=== PATIENT | male | born 1950 | race Caucasian/White ===

== ENCOUNTER 2019-08-06 09:19 | Emergency (ER) | payer BC ==
[2019-08-06] MEDS ORDERED: Ondansetron INJ* 2 MG/ML VIAL IV ONE (09:23)
[2019-08-06] MEDS ORDERED: Morphine 4 MG/ML VIAL (1 ml) 4 MG/ML VIAL IV ONE ×2 (09:23→10:18)
[2019-08-06 09:59] LABS: ABS Eosinophils 0.2 10^3/ul (0-0.6); ABS Monocytes 0.5 10^3/ul (0-0.8); ABS Neutrophils 3.3 10^3/ul (1.5-7.7); Eosinophil % 3.2 %; Hematocrit 45 % (42-52); Hemoglobin 15.6 g/dL (14.0-18.0); Lymphocyte % 19.5 %; Mean Corpuscular HGB Conc 35 g/dL (31-36); Mean Corpuscular Hemoglobin 32 pg (27-31); Mean Corpuscular Volume 93 fL (80-94); Mean Platelet Volume 8.8 fL (7.4-10.4); Nucleated Red Blood Cells % 0.1; Platelet Count 173 10^3/uL (150-450); Red Blood Count 4.82 10^6 /uL (4.18-5.48); Red Cell Distribution Width 13 % (10-15)
--- OUTSIDE RECORDS SUMMARY | 2019-08-06 10:07 | XMS REPORT | Continuity of Care Document ---
:1950 External Reference #:[id number] Author Name Nilay Sharma M.D. (transmitted by agent of provider Maria Isabel De Santiago) Address [address], [place] [address] Care Team Providers Name Role Phone Amrit Nieto MD - Family Care Team Information Compound Filler [phone] Gely Quiroz M.D. 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 Galvan M.D.,FACP Onset: 2017 Dysfunction of eustachian tube Rocky Galvan M.D.,FACP Onset: 06/11/2018 Note: allergies Social History Type Date Description Comments Sex Unknown Tobacco Use Start: 11/04/69 End: Former Cigarette Smoker /2 11/04/70 Pack Daily ETOH Use 06/11/2018 Currently consumes alcohol ETOH Use Drinks 3 Alcoholic Beverages Per Week Recreational Drug Use Denies Drug Use Tobacco Use Start: Unknown Patient has never smoked Smoking Status Reviewed: 06/12/19 Patient has never smoked Exercise Type/Frequency Exercises regularly Allergies, Adverse Reactions, Alerts Active Allergies Reaction Severity Comments Date Neosporin 07/20/2016 Medications Active Medications SIG Qnty Indications Ordering Date Provider Shingrix 0.5 milliliters 2units Gely Antoine MD 10/14/2018 50mcg/0.5ML intramuscular now Suspension Rec and 2-3 months later repeat Valacyclovir HCL take two tablets by 8tasara Lucero 06/11/2018 1gm mouth every 12 hours Alex Sharma Tablets as needed maximum daily dose = four tablets Saw [place] 1 by mouth twice a 60caps Rocky Crow 06/11/2018 450mg day Alex Galvan,FACP Capsules Fluticasone 2 sprays in each 16gm Gely Antoine MD Propionate nostril bid 50mcg/Act Suspension Multivitamin Men once daily Unknown Tablets Glucosamine 1500 1 by mouth every day Unknown Complex 1500Com Capsules Medications Administered in Office Medication SIG Qnty Indications Ordering Provider Date Td(Adult),Unspecified Unknown 06/02/2007 Injection Immunizations CPT Code Status Date Vaccine Reaction Lot # [id number] Given 06/12/2019 Pneumonia Vaccine [id number] 29291 Given 10/14/2018 Influenza Virus Vaccine, [id number] Quadrivalent, Split, Preservative Free 25595 Given 12/31/2017 Pneumococcal Conjugate done at [facility] Vaccine 13 Valent For med Intramuscular Use 65914 Given 09/08/2017 Influenza Virus Vaccine, done at [facility] Quadrivalent, Split, med Preservative Free 50356 Given 11/06/2016 Influenza Virus Vaccine, done at [facility] Quadrivalent, Split, med Preservative Free 50019 Given 10/08/2015 Influenza Virus Vaccine, done at [facility] Quadrivalent, Split, med Preservative Free 34336 Given 12/03/2014 Influenza Virus Vaccine, done at [facility] Quadrivalent, Split, med Preservative Free 50874 Given 11/30/2013 Influenza Virus Vaccine, done at [facility] Quadrivalent, Split, med Preservative Free 63616 Given 09/11/2012 Influenza Virus Vaccine, done at [facility] Quadrivalent, Split, med Preservative Free 62299 Given 08/02/2011 Zoster (Zostavax) done at [facility] med 20913 Given 08/02/2011 Influenza Virus Vaccine, done at [facility] Quadrivalent, Split, med Preservative Free 96231 Given 07/27/2010 Influenza Virus Vaccine, done at [facility] Quadrivalent, Split, med Preservative Free 84007 Given 07/27/2010 Hepatitis A Vaccine Adult done at [facility] [place] 19965 Given 12/22/2009 Hepatitis A Vaccine Adult done at [facility] Dosage med Vital Signs Date Vital Result Comment 06/12/2019 9:03am Height 74 inches 6'2" Weight 204.00 lb Heart Rate 74 /min BP Systolic 160 mmHg BP Diastolic 96 mmHg BP Systolic Sitting 154 mmHg 150/82 BP Diastolic Sitting 79 mmHg 150/82 O2 % BldC Oximetry 96 % BMI (Body Mass Index) 26.2 kg/m2 11/11/2018 8:05am Height 74 inches 6'2" Weight 203.38 lb Heart Rate 65 /min BP Systolic Sitting 132 mmHg BP Diastolic Sitting 72 mmHg Body Temperature 96.0 F O2 % BldC Oximetry 98 % BMI (Body Mass Index) 26.1 kg/m2 Results Description No Information Available Procedures Date Code Description Status 07/21/2012 05094621 Colonoscopy Completed 11/04/2009 [id number] Colonoscopy Completed Medical Devices Description No Information Available Encounters Description No Information Available Assessments Date Code Description Provider 06/12/2019 R39.198 Other difficulties with micturition Nilay Sharma M.D. 06/12/2019 Z23 Encounter for immunization Nilay Sharma M.D. Plan of Treatment 06/12/2019 - Nilay Sharma M.D.R39.198 Other difficulties with micturitionComments:Chronic decreased urine flow, dribbling sx, so far with no clear cause. Local urology eval to date unhelpful and pt scheduled for a second urology opinion in [place] later this month. No dysuria orabd pain sx.Follow up:prn after urology evalZ23 Encounter for immunizationComments: General health good, although BP up a bit today. Pneumovax given and the new shingles vaccine discussed. Pt up to date with other vaccines, colon exam. Will check [facility] system for recent labs Functional Status Description No Information Available Mental Status Description No Information Available Referrals Refer to Dr Reason for Referral Status Appt Date Ariel Silva M.D. Sent [address] [place] [address] [phone]
--- OUTSIDE RECORDS SUMMARY | 2019-08-06 10:07 | XMS REPORT | Continuity of Care Document ---
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 Payers Date Identification Numbers Payment Provider Subscriber Effective: 2017 Policy Number: [id number] [employer] Augustina Lorenzana PayID: [id number] [address] [address] [place] [address] Policy Number: [id number] Medicare Saleem Lorenzana PayID: [id number] [address] [place] [address] Problems Active Problems Provider Date Bicipital tenosynovitis Miles Reed MD Onset: 08/28/2016 Benign prostatic hypertrophy without Rocky Galvan M.D.,FACP Onset: 06/2018 outflow obstruction Recurrent herpes simplex labialis Rocky Galvan M.D.,FACP Onset: 2017 Dysfunction of eustachian tube Rocky Galvan M.D.,FACP Onset: 06/11/2018 Note: allergies Resolved Problems Sprain of shoulder and upper arm Miles Reed MD Onset: 08/28/2016 Resolved: 06/11/2018 Family History Date Family Member(s) Observation Comments General Diabetes General Hypertension General Cancer Father due to Lung Cancer () Mother Heart Disease : (age 84 Years) Mother due to Natural Causes Siblings 1 First Brother Arthritis, Osteo Social History Type Date Description Comments Sex Unknown Marital Status Lives With Occupation Currently Working Tobacco Use Start: 11/04/69 End: Former Cigarette Smoker 1/2 11/04/70 Pack Daily ETOH Use 06/11/2018 Currently [...] repeat Valacyclovir HCL take two tablets by 8tabs Nilay Lucero 06/11/2018 1gm mouth every 12 hours Alex Sharma Tablets as needed maximum daily dose = four tablets Saw [place] 1 by mouth twice a 60caps Rocky Crow 06/11/2018 450mg day Alex Galvan,FACP Capsules Fluticasone 2 sprays in each 16gm Gely Antoine MD Propionate nostril bid 50mcg/Act Suspension Multivitamin Men once daily Unknown Tablets Glucosamine 1500 1 by mouth every day Unknown Complex 1500Com Capsules History Medications Amoxicillin/Clavulanate 1 twice a 20tabs J01.90 Gely Antoine 10/14/2018 - Potassium day for 10 11/11/2018 875-125mg Tablets days Tamsulosin HCL one po daily 30caps N40.0 Gely Antoine 10/14/2018 - 0.4mg Capsules at night 11/11/2018 Medications Administered in Office Medication SIG Qnty Indications Ordering Provider Date Td(Adult),Unspecified Unknown 06/02/2007 Injection Immunizations CPT Code Status Date Vaccine Reaction Lot # [id number] Given 06/12/2019 Pneumonia Vaccine [id number] 35708 Given 10/14/2018 Influenza Virus Vaccine, [id number] Quadrivalent, Split, Preservative Free 87424 Given 12/31/2017 Pneumococcal Conjugate done at [facility] Vaccine 13 Valent For med Intramuscular Use 54969 Given 09/08/2017 Influenza Virus Vaccine, done at [facility] Quadrivalent, Split, med Preservative Free 70199 Given 11/06/2016 Influenza Virus Vaccine, done at [facility] Quadrivalent, Split, med Preservative Free 86125 Given 10/08/2015 Influenza Virus Vaccine, done at [facility] Quadrivalent, Split, med Preservative Free 86275 Given 12/03/2014 Influenza Virus Vaccine, done at [facility] Quadrivalent, Split, med Preservative Free 92783 Given 11/30/2013 Influenza Virus Vaccine, done at [facility] Quadrivalent, Split, med Preservative Free 36651 Given 09/11/2012 Influenza Virus Vaccine, done at [facility] Quadrivalent, Split, med Preservative Free 05909 Given 08/02/2011 Zoster (Zostavax) done at [facility] med 19448 Given 08/02/2011 Influenza Virus Vaccine, done at [facility] Quadrivalent, Split, med Preservative Free 10121 Given 07/27/2010 Influenza Virus Vaccine, done at [facility] Quadrivalent, Split, med Preservative Free 34755 Given 07/27/2010 Hepatitis A Vaccine Adult done at [facility] [place] 10953 Given 12/22/2009 Hepatitis A Vaccine Adult done at [facility] Dosage med Vital Signs Date Vital Result [...] % BMI (Body Mass Index) 26.1 kg/m2 10/14/2018 9:39am Height 74 inches 6'2" Weight 203.38 lb Heart Rate 68 /min BP Systolic 130 mmHg BP Diastolic 82 mmHg Body Temperature 96.4 F O2 % BldC Oximetry 97 % BMI (Body Mass Index) 26.1 kg/m2 06/11/2018 4:14pm Height 74 inches 6'2" Weight 199.38 lb Heart Rate 65 /min BP Systolic Sitting 136 mmHg BP Diastolic Sitting 78 mmHg O2 % BldC Oximetry 97 % BMI (Body Mass Index) 25.6 kg/m2 08/28/2016 11:22am Height 74 inches 6'2" Weight 191.00 lb Heart Rate 60 /min Respiratory Rate 16 /min Pain Level 7 BMI (Body Mass Index) 24.5 kg/m2 07/20/2016 8:54am Height 74 inches 6'2" Weight 191.00 lb Pain Level 7 BMI (Body Mass Index) 24.5 kg/m2 Results Test Date Facility Test Result H/L Range Note PSA Free And Total 11/14/2018 [facility] PSA Total 3.0 ng/mL <=4.5 [address] [place] [address] [phone] PSA Free 0.8 ng/mL PSA Free/Total See Comment ratio 1 1 Ratio not calculated because clinical usefulness is not defined except in range of total PSA 4.0-10.0 ng/mL. ADDITIONAL INFORMATION The testing method is an electrochemiluminescence assay manufactured by [employer] and performed on the Modular or Estela system. Values obtained with different assay methods or kits may be different and cannot be used interchangeably. Test results cannot be interpreted as absolute evidence for the presence or absence of malignant disease. Test Performed by: [facility] [address] [place] [address] Procedures Date Code Description Status 07/21/2012 [id number] Colonoscopy Completed 11/04/2009 [id number] Colonoscopy Completed Encounters Type Date Location Provider Dx Diagnosis Office Visit 11/11/2018 Elo Antoine MD R39.198 Other difficulties 8:00a Medicine - Suite with micturition R Office Visit 10/14/2018 Elo Antoine MD J01.90 Acute sinusitis, 9:40a Medicine - Suite unspecified R Z23 Encounter for immunization N40.0 Benign prostatic hyperplasia without lower urinry tract symp Office Visit 06/11/2018 4:20p Elo Crow Z00.00 [facility] Alex Galvan,FACP general adult R medical exam w/o abnormal findings N40.0 Benign prostatic hyperplasia without lower urinry tract symp Office Visit 08/28/2016 11:15a Orthopedic Miles Reed, M75.21 [facility], right C.M.A. shoulder S46.011A Strain of musc/tend the rotator cuff of right shoulder, init Office Visit 07/20/2016 8:30a Orthopedic Miles Reed M75.21 [facility] MD matute, right C.M.A. shoulder S46.011A Strain of musc/tend the rotator cuff of right shoulder, init Plan of Treatment 06/12/2019 - Nilay Sahrma M.D.R39.198 Other difficulties with micturitionComments:Chronic decreased urine flow, dribbling sx, so far with no clear cause. Local urology eval to date unhelpful and pt scheduled for a second urology opinion in [place] later this month. No dysuria orabd pain sx.Follow up:prn after urology evalZ23 Encounter for immunizationComments: General health good, although BP up a bit today. Pneumovax given and the new shingles vaccine discussed. Pt up to date with other vaccines, colon exam. Will check [facility] system for recent labs
[2019-08-06 10:18] LABS: ALT 35 U/L (7-52); AST 30 U/L (13-39); Albumin 4.2 g/dL (3.2-5.2); Albumin/Globulin Ratio 1.6 (1-3); Alkaline Phosphatase 55 U/L (34-104); Anion Gap 5 mmol/L (2-11); BUN/Creatinine Ratio 19.5 (8-20); Blood Urea Nitrogen 23 mg/dL (6-24); C Reactive Protein < 1.00 mg/L (<8.01); CO2 Carbon Dioxide 26 mmol/L (22-32); Calcium 9.8 mg/dL (8.6-10.3); Chloride 107 mmol/L (101-111); EGFR African American 74.7 (>60); EGFR Non-African American 61.8 (>60); Globulin 2.7 g/dL (2-4); Glucose 132 mg/dL (70-100); Potassium 4.4 mmol/L (3.5-5.0); Sodium 138 mmol/L (135-145); Total Protein 6.9 g/dL (6.4-8.9)
--- NOTE | 2019-08-06 10:21 | ED ---
Back Pain - HPI Summary HPI Summary: Pt is a 68 y/o M presenting to the ED for a chief complaint of flank pain over the right kidney. The flank began 2 weeks ago and pt describes that the pain comes and goes. Pt took Tylenol at 07:30 on 08/06/19 for the pain. Pt has had difficulty urinating, dysuria, and has testicular pain. Pt denies any fever, chills, erythema of eyes, sore throat, CP, SOB, cough, abdominal pain, N/V, hematuria, edema, rash, or dizziness. Pt is currently being treated at [place] for his prostate and is on hormone therapy. Pt is concerned about his prostate. Pt has a PMHx of nephrolithiasis. Allergies noted. - History of Current Complaint Chief Complaint: EDFlankPain Stated Complaint: POSS KIDNEY STONE PAIN PER PT Time Seen by Provider: 08/06/19 09:21 Hx Obtained From: Patient Onset/Duration: Still Present Severity Initially: Moderate Severity Currently: Moderate Pain Intensity: 5 Pain Scale Used: 0-10 Numeric Aggravating Symptom(s): Nothing Alleviating Symptom(s): Nothing Associated Signs And Symptoms: Positive: Flank Pain - Right. Negative: Swelling , Fever, Abdominal Pain - Allergies/Home Medications Allergies/Adverse Reactions: Allergies Allergy/AdvReac Type Severity Reaction Status Date / Time bacitracin Allergy Hives Verified 08/06/19 10:13 neomycin Allergy Hives Verified 08/06/19 10:13 polymyxin B Allergy Hives Verified 08/06/19 10:13 Home Medications: Home Medications Bicalutamide (NF) [Casodex (NF)] 50 mg PO DAILY 08/06/19 [History Confirmed 01/20] Glucosamine CAP (NF) 1 cap PO DAILY 08/06/19 [History Confirmed 08/06/19] Multivitamins/Minerals TAB* [Theragran/minerals TAB*] 1 tab PO DAILY 08/06/19 [ History Confirmed 08/06/19] Tadalafil (Nf) [Cialis (NF)] 5 mg PO DAILY 08/06/19 [History Confirmed 08/06/19] PMH/Surg Hx/FS Hx/Imm Hx Previously Healthy: Yes Endocrine/Hematology History: Denies: Hx Diabetes Cardiovascular History: Denies: Hx Hypertension, Hx Pacemaker/ICD Respiratory History: Denies: Hx Asthma History: Reports: Hx Kidney Stones Denies: Hx Renal Disease Sensory History: Denies: Hx Hearing Aid Psychiatric History: Denies: Hx Panic Disorder - Surgical History Surgical History: Yes Surgery Procedure, Year, and Place: appendectomy 2006 Infectious Disease History: No Infectious Disease History: Denies: Traveled Outside the [place] in Last 30 Days - Family History Known Family History: Negative: Diabetes - Social History Alcohol Use: Occasionally Substance Use Type: Reports: None Smoking Status (MU): Never Smoked Tobacco Review of Systems Negative: Fever, Chills Negative: Erythema Negative: Sore Throat Negative: Chest Pain Negative: Shortness Of Breath, Cough Negative: Abdominal Pain, Vomiting, Nausea Positive: dysuria, flank pain, other - Positive testicular pain. Negative: hematuria Negative: Edema Negative: Rash Neurological: Other - Negative dizziness All Other Systems Reviewed And Are Negative: Yes Physical Exam - Summary Physical Exam Summary: Constitutional: Well-developed, Well-nourished, Alert. (-) Distressed Skin: Warm, Dry HENT: Normocephalic; Atraumatic Eyes: Conjunctiva normal Neck: Musculoskeletal ROM normal neck. (-) JVD, (-) Stridor, (-) Tracheal deviation Cardio: Rhythm regular, rate normal, Heart sounds normal; Intact distal pulses; The pedal pulses are 2+ and symmetric. Radial pulses are 2+ and symmetric. (-) Murmur Pulmonary/Chest wall: Effort normal. (-) Respiratory distress, (-) Wheezes, (-) Rales Abd: Soft, (-) tenderness, (-) Distension, (-) Guarding, (-) Rebound Musculoskeletal: (-) Edema. Right CVA tenderness. Lymph: (-) Cervical adenopathy Neuro: Alert, Oriented x3 Psych: Mood and affect Normal Triage Information Reviewed: Yes Vital Signs On Initial Exam: Initial Vitals Temp Pulse Resp BP Pulse Ox 97.6 F 65 22 181/104 97 08/06/19 09:26 08/06/19 09:26 08/06/19 09:26 08/06/19 09:26 08/06/19 09:26 Vital Signs Reviewed: Yes Procedures - Sedation Patient Received Moderate/Deep Sedation with Procedure: No Diagnostics - Vital Signs Vital Signs Temp Pulse Resp BP Pulse Ox 08/06/19 09:45 22 08/06/19 09:26 97.6 F 65 22 181/104 97 - Laboratory Lab Results: Lab Results 08/06/19 08/06/19 08/06/19 Range/Units 09:49 09:49 09:49 WBC 5.0 (3.5-10.8) 10^3/uL RBC 4.82 (4.18-5.48) 10^6 /uL Hgb 15.6 (14.0-18.0) g/dL Hct 45 (42-52) % MCV 93 (80-94) fL MCH 32 H (27-31) pg MCHC 35 (31-36) g/dL RDW 13 (10-15) % Plt Count 173 (150-450) 10^3/uL MPV 8.8 (7.4-10.4) fL Neut % (Auto) 66.2 % Lymph % (Auto) 19.5 % [place] % (Auto) 10.2 % Eos % (Auto) 3.2 % Baso % (Auto) 0.9 % Absolute Neuts (auto) 3.3 (1.5-7.7) 10^3/ul Absolute Lymphs (auto) 1.0 (1.0-4.8) 10^3/ul Absolute Monos (auto) 0.5 (0-0.8) 10^3/ul Absolute Eos (auto) 0.2 (0-0.6) 10^3/ul Absolute Basos (auto) 0.0 (0-0.2) 10^3/ul Absolute Nucleated RBC 0.0 10^3/ul Nucleated RBC % 0.1 Sodium 138 (135-145) mmol/L Potassium 4.4 (3.5-5.0) mmol/L Chloride 107 (101-111) mmol/L Carbon Dioxide 26 (22-32) mmol/L Anion Gap 5 (2-11) mmol/L BUN 23 (6-24) mg/dL Creatinine 1.18 H (0.67-1.17) mg/dL Est GFR ( Amer) 74.7 (>60) Est GFR (Non-Af Amer) 61.8 (>60) BUN/Creatinine Ratio 19.5 (8-20) Glucose 132 H (70-100) mg/dL Lactic Acid 1.4 (0.5-2.0) mmol/L Calcium 9.8 (8.6-10.3) mg/dL Total Bilirubin 0.50 (0.2-1.0) mg/dL AST 30 (13-39) U/L ALT 35 (7-52) U/L Alkaline Phosphatase 55 (34-104) U/L C-Reactive Protein < 1.00 (<8.01) mg/L Total Protein 6.9 (6.4-8.9) g/dL Albumin 4.2 (3.2-5.2) g/dL Globulin 2.7 (2-4) g/dL Albumin/Globulin Ratio 1.6 (1-3) Lipase 40 (11.0-82.0) U/L Result Diagrams: 08/06/19 09:49 08/06/19 09:49 Lab Statement: Any lab studies that have been ordered have been reviewed, and results considered in the medical decision making process. - CT Abdomen/Pelvis CT CT Interpretation Completed By: Radiologist Summary of CT Findings: Abdomen/Pelvis CT IMPRESSION: 1. RIGHT NEPHROLITHIASIS INCLUDING A 0.2 CM RIGHT UVJ CALCULUS WITH MILD RIGHT. HYDRONEPHROSIS. 2. NO APPRECIABLE LYTIC OR SCLEROTIC BONE LESIONS. NO LYMPHADENOPATHY BY SIZE CRITERIA. Reviewed by ED physician. Re-Evaluation - Re-Evaluation 1st re-eval Re-Evaluation Time: 10:18 Change: Improved Comment: At 10:18, pain improved to 6/10. 2nd re-eval Re-Evaluation Time: 13:17 Comment: At 13:17, no evidence of urinary retention. Back Pain Course/Dx - Course Course Of Treatment: Pt is a 68 y/o M presenting to the ED for a chief complaint of flank pain over the right kidney. The flank began 2 weeks ago and pt describes that the pain comes and goes. Pt took Tylenol at 07:30 on 08/06/19 for the pain. Pt has had difficulty urinating, dysuria, and has testicular pain. Pt denies any fever, chills, erythema of eyes, sore throat, CP, SOB, cough, abdominal pain, N/V, hematuria, edema, rash, or dizziness. Pt is currently being treated at [facility] for his prostate and is on hormone therapy. Pt is concerned about his prostate. Pt has a PMHx of nephrolithiasis. Allergies noted. On exam, pt had right CVA tenderness. Laboratory abnormal findings: MCH 32, creatinine 1.18, glucose 132, urine protein 1+, urine ascorbic acid present. Abdomen/Pelvis CT IMPRESSION: 1. RIGHT NEPHROLITHIASIS INCLUDING A 0.2 CM RIGHT UVJ CALCULUS WITH MILD RIGHT. HYDRONEPHROSIS. 2. NO APPRECIABLE LYTIC OR SCLEROTIC BONE LESIONS. NO LYMPHADENOPATHY BY SIZE CRITERIA. At 09:14, I spoke with Dr. Malone who wants the pt to have an abdomen/pelvis CT. 1st re-eval: At 10:18, pain improved to 6/10. 2nd re-eval: At 13:17, no evidence of urinary retention. Pt will be discharged home with a diagnosis of ureteral stones and renal colic. Follow-up with Dr. Malone in 3-5 days. - Diagnoses Provider Diagnoses: Ureteral stone, Renal colic Discharge ED - Sign-Out/Discharge Documenting (check all that apply): Patient Departure - Discharge - Discharge Plan Condition: Stable Disposition: HOME Prescriptions: Cephalexin CAP* [Keflex CAP*] 500 mg PO QID #20 cap HYDROcodone/ACETAMIN 5-325 MG* [Joiner 5-325 TAB*] 1 tab PO Q4H PRN #10 tab MDD 6 PRN Reason: Pain - Severe Ibuprofen TAB* [Motrin TAB* 600 MG] 600 mg PO Q8H PRN #10 tab PRN Reason: Pain - Severe Patient Education Materials: Ureteral Stones (ED) Referrals: Nilay Sharma MD [Primary Care Provider] - Additional Instructions: Return to the ED for any new or worsening symptoms. Follow-up with Dr. Malone in 3-5 days. - Attestation Statements Document Initiated by Scribe: Yes Documenting Scribe: Ruth Matamoros Provider For Whom Scribe is Documenting (Include Credential): Compa Pate MD Scribe Attestation: I, Ruth Matamoros, scribed for Compa Pate MD on 08/24/19 at 1021. Status of Scribe Document: Ready
[2019-08-06] MEDS ORDERED: Ketorolac INJ* 30 MG/ML 1 ML VIAL IV PUSH ONE (11:23)
[2019-08-06] MEDS ORDERED: NS 0.9% 1000 ML** 1,000 ML IV ONE (11:23)
[2019-08-06 13:43] LABS: Urine Color Yellow
[2019-08-06 13:44] LABS: Urine Appearance Clear; Urine Bilirubin Negative (Negative); Urine Blood Negative (Negative); Urine Glucose Negative (Negative); Urine Ketones Negative (Negative); Urine Nitrite Negative (Negative); Urine Protein 1+(30 mg/dL) (Negative); Urine Urobilinogen Negative (Negative)
[2019-08-06 14:17] VITALS: BP 159/73
== END 2019-08-06 14:10 | disposition home or self-care (01) ==
LOC: ED 09:19
DX: N13.2 Hydronephrosis with renal and ureteral calculous obstruction (principal); Z88.1 Allergy status to other antibiotic agents; Z88.8 Allergy status to other drugs, medicaments and biological substances; Z79.899 Other long term (current) drug therapy
CPT/HCPCS: 36415; 74176; 80053; 81003; 81015; 83605; 83690; 85025; 86140; 96361; 96374; 96375; 96376; 99283; J1885; J2270; J2405

== ENCOUNTER 2020-06-09 15:03 | Inpatient (IN) ==
[2020-06-09 15:42] LABS: ABS Lymphocytes 0.4 10^3/ul (1.0-4.8); ABS Monocytes 0.1 10^3/ul (0-0.8); Eosinophil % 0.2 %; Hematocrit 36 % (42-52); Hemoglobin 13.4 g/dL (14.0-18.0); Lymphocyte % 70.9 %; Mean Corpuscular HGB Conc 38 g/dL (31-36); Mean Corpuscular Hemoglobin 35 pg (27-31); Mean Corpuscular Volume 93 fL (80-94); Mean Platelet Volume 8.5 fL (7.4-10.4); Platelet Count 160 10^3/uL (150-450); Red Blood Count 3.85 10^6 /uL (4.18-5.48); Red Cell Distribution Width 13 % (10-15); White Blood Count 0.5 10^3/uL (3.5-10.8)
[2020-06-09 16:05] LABS: Albumin 3.6 g/dL (3.2-5.2); Albumin/Globulin Ratio 1.3 (1-3); BUN/Creatinine Ratio 18.6 (8-20); C Reactive Protein 110.71 mg/L (<8.01); Calcium 9.1 mg/dL (8.6-10.3); EGFR African American 107.3 (>60); EGFR Non-African American 88.7 (>60); Globulin 2.8 g/dL (2-4); Potassium 4.1 mmol/L (3.5-5.0); Total Bilirubin 0.8 mg/dL (0.2-1.0); Total Protein 6.4 g/dL (6.4-8.9)
[2020-06-09] MEDS ORDERED: Cefepime 2 GM VIAL ONE (17:14)
[2020-06-09] MEDS ORDERED: Ondansetron ODT 4 mg TAB 4 MG TAB PO PRN (18:03)
[2020-06-09] MEDS: Magic MouthWash2-BEN/MAAL/LIDO/NYST 240 ML BTL (alt formulation) SWISH SPIT SCH (22:36)
[2020-06-09] MEDS: NS 0.9% 1000 ml BAG 1,000 ML IV SCH (22:38)
[2020-06-09 23:04] LABS: Rapid Strep Molecular Negative (Negative)
[2020-06-09 23:59] LABS: Urine Appearance Cloudy; Urine Bilirubin Negative (Negative); Urine Blood 2+ (Negative); Urine Color Yellow; Urine Glucose Negative (Negative); Urine Ketones Trace (Negative); Urine Nitrite Negative (Negative); Urine Protein Negative (Negative); Urine Urobilinogen Negative (Negative)
[2020-06-10 00:02] LABS: Urine Bacteria Absent (Absent); Urine Red Blood Cell 2+(6-10/hpf) (Absent); Urine Squamous Epithelial Cell Present (Absent); Urine White Blood Cell Absent (Absent)
[2020-06-10] MEDS: Cefepime 2 GM in Dextrose 2 GM/50 ML BAG IV SCH ×3 (01:33→16:38)
[2020-06-10 06:22] LABS: Hematocrit 34 % (42-52); Hemoglobin 12.3 g/dL (14.0-18.0); Mean Corpuscular HGB Conc 36 g/dL (31-36); Mean Corpuscular Hemoglobin 34 pg (27-31); Mean Corpuscular Volume 94 fL (80-94); Mean Platelet Volume 8.3 fL (7.4-10.4); Platelet Count 156 10^3/uL (150-450); Red Blood Count 3.65 10^6 /uL (4.18-5.48); Red Cell Distribution Width 13 % (10-15); White Blood Count 1.2 10^3/uL (3.5-10.8)
[2020-06-10 06:31] LABS: Potassium 4.2 mmol/L (3.5-5.0); Total Bilirubin 0.9 mg/dL (0.2-1.0)
[2020-06-10 06:37] LABS: Albumin/Globulin Ratio 1.2 (1-3); BUN/Creatinine Ratio 15.7 (8-20); EGFR African American 103.2 (>60); EGFR Non-African American 85.3 (>60); Globulin 2.5 g/dL (2-4); Total Protein 5.5 g/dL (6.4-8.9)
[2020-06-10 08:33] LABS: Nucleated Red Blood Cells % 0.6
[2020-06-10] MEDS: Magic MouthWash2-BEN/MAAL/LIDO/NYST 240 ML BTL (alt formulation) SWISH SPIT SCH ×4 (08:47→19:54)
[2020-06-10] MEDS: Fluticasone NASAL SPRAY 50MCG 16 gm SPRAY BTL INTRANASAL SCH (08:48)
[2020-06-10] MEDS: NS 0.9% 1000 ml BAG 1,000 ML IV SCH ×2 (12:50→23:47)
[2020-06-10] MEDS: Polyethylene Glycol 3350 17 GM PACKET PO PRN (16:37)
[2020-06-10] MEDS: FESOTERODINE 8 MG PO SCH (19:54)
[2020-06-11] MEDS: Cefepime 2 GM in Dextrose 2 GM/50 ML BAG IV SCH ×3 (00:43→16:55)
[2020-06-11 06:45] LABS: Hematocrit 32 % (42-52); Hemoglobin 11.9 g/dL (14.0-18.0); Mean Corpuscular HGB Conc 37 g/dL (31-36); Mean Corpuscular Hemoglobin 35 pg (27-31); Mean Corpuscular Volume 93 fL (80-94); Mean Platelet Volume 7.8 fL (7.4-10.4); Platelet Count 159 10^3/uL (150-450); Red Blood Count 3.44 10^6 /uL (4.18-5.48); Red Cell Distribution Width 13 % (10-15); White Blood Count 1.8 10^3/uL (3.5-10.8)
[2020-06-11 06:46] LABS: ABS Neutrophils 0.1 10^3/ul (1.5-7.7)
[2020-06-11 07:00] LABS: Albumin 2.8 g/dL (3.2-5.2); Albumin/Globulin Ratio 1.2 (1-3); BUN/Creatinine Ratio 15.6 (8-20); Calcium 7.9 mg/dL (8.6-10.3); EGFR African American 121.9 (>60); EGFR Non-African American 100.8 (>60); Globulin 2.3 g/dL (2-4); Potassium 4.1 mmol/L (3.5-5.0); Total Bilirubin 0.6 mg/dL (0.2-1.0); Total Protein 5.1 g/dL (6.4-8.9)
[2020-06-11] MEDS: Fluticasone NASAL SPRAY 50MCG 16 gm SPRAY BTL INTRANASAL SCH (08:36)
[2020-06-11] MEDS: Polyethylene Glycol 3350 17 GM PACKET PO PRN (08:36)
[2020-06-11] MEDS: Magic MouthWash2-BEN/MAAL/LIDO/NYST 240 ML BTL (alt formulation) SWISH SPIT SCH ×4 (08:37→19:48)
[2020-06-11 11:01] LABS: ABS Lymphocytes 1.1 10^3/ul (1.0-4.8); ABS Monocytes 0.6 10^3/ul (0-0.8); Eosinophil % 0.2 %; Lymphocyte % 59.3 %; Nucleated Red Blood Cells % 0.9
[2020-06-11] MEDS: NS 0.9% 1000 ml BAG 1,000 ML IV SCH (13:21)
[2020-06-11] MEDS: Saline NASAL SPRAY 0.65% BTL BOTH NARES PRN (16:57)
[2020-06-11] MEDS: FESOTERODINE 8 MG PO SCH (19:45)
[2020-06-12] MEDS: Cefepime 2 GM in Dextrose 2 GM/50 ML BAG IV SCH ×2 (00:39→08:40)
[2020-06-12] MEDS: NS 0.9% 1000 ml BAG 1,000 ML IV SCH (02:46)
[2020-06-12] MEDS: Saline NASAL SPRAY 0.65% BTL BOTH NARES PRN ×4 (02:47→16:07)
[2020-06-12 06:22] LABS: ABS Lymphocytes 1.1 10^3/ul (1.0-4.8); ABS Monocytes 0.6 10^3/ul (0-0.8); ABS Neutrophils 0.3 10^3/ul (1.5-7.7); Eosinophil % 0.1 %; Hematocrit 31 % (42-52); Hemoglobin 11.5 g/dL (14.0-18.0); Lymphocyte % 53.4 %; Mean Corpuscular HGB Conc 38 g/dL (31-36); Mean Corpuscular Hemoglobin 35 pg (27-31); Mean Corpuscular Volume 93 fL (80-94); Mean Platelet Volume 7.9 fL (7.4-10.4); Nucleated Red Blood Cells % 0.3; Platelet Count 191 10^3/uL (150-450); Red Blood Count 3.31 10^6 /uL (4.18-5.48); Red Cell Distribution Width 13 % (10-15)
[2020-06-12 06:34] LABS: Calcium 7.7 mg/dL (8.6-10.3); EGFR African American 125.7 (>60); EGFR Non-African American 103.9 (>60); Potassium 3.8 mmol/L (3.5-5.0)
[2020-06-12] MEDS ORDERED: NS 0.9% 1000 ml BAG 1,000 ML IV SCH (07:40)
[2020-06-12] MEDS: Magic MouthWash2-BEN/MAAL/LIDO/NYST 240 ML BTL (alt formulation) SWISH SPIT SCH ×4 (08:40→20:01)
[2020-06-12] MEDS: Fluticasone NASAL SPRAY 50MCG 16 gm SPRAY BTL INTRANASAL SCH (08:40)
[2020-06-12] MEDS: Polyethylene Glycol 3350 17 GM PACKET PO PRN (12:13)
[2020-06-12] MEDS: Cefepime 2 GM in NS 0.9% 50 ML 50 ML IVPB SCH (16:06)
[2020-06-12] MEDS ORDERED: VANCOMYCIN 1500 MG X 1 DOSE, THEN PER PHARMACY PROTOCOL IVPB ONE (16:30)
[2020-06-12] MEDS: FESOTERODINE 8 MG PO SCH (20:00)
[2020-06-13] MEDS: Cefepime 2 GM in NS 0.9% 50 ML 50 ML IVPB SCH ×3 (01:11→17:26)
[2020-06-13] MEDS: Vancomycin 1,000 MG in NS 0.9% 250 ml 250 ML IV SCH ×3 (02:00→18:08)
[2020-06-13 08:08] LABS: Hematocrit 33 % (42-52); Hemoglobin 12.4 g/dL (14.0-18.0); Mean Corpuscular HGB Conc 37 g/dL (31-36); Mean Corpuscular Hemoglobin 35 pg (27-31); Mean Corpuscular Volume 93 fL (80-94); Mean Platelet Volume 8.1 fL (7.4-10.4); Platelet Count 234 10^3/uL (150-450); Red Blood Count 3.54 10^6 /uL (4.18-5.48); Red Cell Distribution Width 13 % (10-15); White Blood Count 2.9 10^3/uL (3.5-10.8)
[2020-06-13 08:22] LABS: Albumin/Globulin Ratio 1.1 (1-3); BUN/Creatinine Ratio 17.9 (8-20); Calcium 8.3 mg/dL (8.6-10.3); EGFR African American 110.3 (>60); EGFR Non-African American 91.1 (>60); Globulin 2.7 g/dL (2-4); Potassium 3.9 mmol/L (3.5-5.0); Total Bilirubin 0.4 mg/dL (0.2-1.0); Total Protein 5.7 g/dL (6.4-8.9)
[2020-06-13 08:46] LABS: ABS Monocytes 0.9 10^3/ul (0-0.8); ABS Neutrophils 1.1 10^3/ul (1.5-7.7); Eosinophil % 0.1 %; Lymphocyte % 32.9 %; Nucleated Red Blood Cells % 0.2
[2020-06-13] MEDS: Saline NASAL SPRAY 0.65% BTL BOTH NARES PRN ×2 (09:04→12:43)
[2020-06-13] MEDS: Fluticasone NASAL SPRAY 50MCG 16 gm SPRAY BTL INTRANASAL SCH (09:05)
[2020-06-13] MEDS: Magic MouthWash2-BEN/MAAL/LIDO/NYST 240 ML BTL (alt formulation) SWISH SPIT SCH (09:05)
[2020-06-13] MEDS ORDERED: Vancomycin per Pharmacy 1 EA NOTE FOLLOW UP PRN (11:43)
[2020-06-13] MEDS ORDERED: Vancomycin Trough Check NOTE FOLLOW UP ONE (17:30)
[2020-06-13 18:36] LABS: EGFR African American 120.1 (>60); EGFR Non-African American 99.3 (>60)
[2020-06-13] MEDS: FESOTERODINE 8 MG PO SCH (21:24)
[2020-06-14] MEDS: Cefepime 2 GM in NS 0.9% 50 ML 50 ML IVPB SCH ×2 (00:25→08:57)
[2020-06-14] MEDS: Vancomycin 1,000 MG in NS 0.9% 250 ml 250 ML IV SCH (01:52)
[2020-06-14 06:42] LABS: Hematocrit 32 % (42-52); Hemoglobin 11.8 g/dL (14.0-18.0); Mean Corpuscular HGB Conc 37 g/dL (31-36); Mean Corpuscular Hemoglobin 34 pg (27-31); Mean Corpuscular Volume 93 fL (80-94); Mean Platelet Volume 7.8 fL (7.4-10.4); Platelet Count 245 10^3/uL (150-450); Red Blood Count 3.48 10^6 /uL (4.18-5.48); Red Cell Distribution Width 13 % (10-15); White Blood Count 4.3 10^3/uL (3.5-10.8)
[2020-06-14 06:59] LABS: Albumin 2.9 g/dL (3.2-5.2); Albumin/Globulin Ratio 1.1 (1-3); BUN/Creatinine Ratio 21.4 (8-20); Calcium 8.3 mg/dL (8.6-10.3); EGFR African American 110.3 (>60); EGFR Non-African American 91.1 (>60); Globulin 2.6 g/dL (2-4); Potassium 4.5 mmol/L (3.5-5.0); Total Bilirubin 0.3 mg/dL (0.2-1.0); Total Protein 5.5 g/dL (6.4-8.9)
[2020-06-14 07:26] LABS: ABS Lymphocytes 1.2 10^3/ul (1.0-4.8); ABS Monocytes 1.1 10^3/ul (0-0.8); Eosinophil % 0.1 %; Lymphocyte % 27.8 %; Nucleated Red Blood Cells % 0.1
[2020-06-14] MEDS: Fluticasone NASAL SPRAY 50MCG 16 gm SPRAY BTL INTRANASAL SCH (08:57)
[2020-06-14] MEDS ORDERED: Vancomycin Trough Check NOTE FOLLOW UP ONE (09:30)
[2020-06-14 09:32] VITALS: BP 135/66
[2020-06-14] MEDS ORDERED: CEFEPIME* 2 GM in Dextrose* 50 ml IV SCH (17:00)
== END 2020-06-14 12:00 | disposition home or self-care (01) | DRG 720 ==
LOC: CHOA 15:03 → MED 18:25
PROVIDERS: ADMIT Internal Medicine Hematology & Oncology; ATTEND Internal Medicine Hematology & Oncology